=== PATIENT | female | born 1950 | race Caucasian/White ===

== ENCOUNTER 2020-04-27 08:25 | Outpatient (CLI) | payer MEDICARE, SELFPAY ==
[2020-04-27 08:50] VITALS: BMI 36.0
[2020-04-27 08:54] VITALS: BP 150/97; PULSE 88; RESP 18; TEMP 36.2; O2SAT 98
--- NOTE | 2020-04-27 09:07 | AMB.MCA ---
Patient Information Referred by: Dr. Sheriff Symptom onset date: 04/22/20 COVID 19 common symptoms: positive cough and nasal congestion Other details: Positive test 04/23 [facility] COVID test results: No Data to Display outside results available, scanned Criteria/Plan Inclusion/Exclusion Criteria weight >/= 40kg, + direct test </= 10 days ago and symptom onset </= 10 days ago age >/= 65 not requiring hospitalization, not requiring oxygen (if not chronically on oxygen) and no increase oxygen requirement (if chronically on oxygen) Patient education patient/caregiver received/reviewed fact sheet, Emergency Use Authorization/unapproved drug status discussed with patient/caregiver, alternatives to this treatment discussed with patient/caregiver, risks and benefits of medication reviewed with patient/caregiver, patient/caregiver given opportunity for questions, which were answered and patient/caregiver consents to receiving Monoclonal Antibody Treatment Plan for treatment Meets criteria for Monoclonal Antibody infusion Ordering Monoclonal Antibody infusion for today Other information 98% RA
[2020-04-27 10:15] VITALS: BP 140/86; PULSE 66; RESP 20; TEMP 36.6; O2SAT 98
[2020-04-27 11:18] VITALS: BP 142/82; PULSE 69; RESP 20; TEMP 36.8; O2SAT 97
--- NOTE | 2020-04-27 11:28 | PC.NURSE ---
Patient provided with number to [facility] Hotline, for any questions or concerns
--- NOTE | 2020-05-01 12:12 | DCPLANNER ---
industrial safety and health manager received message to schedule appointment for patient for monoclonal antibody infusion. industrial safety and health manager spoke to [facility] Bl[facility] and they stated patient tested positive on 04/19, which is over 10 days so unable to refer patient for monoclonal antibody infusion.
--- NOTE | 2020-05-01 14:09 | DCPLANNER ---
client engagement manager received a fax from [facility] - negative covid results on 04/19. client engagement manager called [facility] and spoke to [place] who explained patient tested negative on 04/19 and positive on 04/23. Stated she will fax the positive results to us.
--- NOTE | 2020-05-01 14:28 | DCPLANNER ---
employee benefits manager received positive covid test result from 04/23/20. employee benefits manager faxed required documentation and orders for monoclonal antibody infusion to centralized scheduling.
== END 2020-04-27 11:18 | disposition home or self-care (01) ==
LOC: OPS 08:27
PROVIDERS: PCP Family Medicine; Referring Provider Nurse Practitioner Family; Visit Provider Family Medicine
DX: U07.1 COVID-19 (principal)
CPT/HCPCS: 96365